=== PATIENT | female | born 1955 ===

== ENCOUNTER → 2019-07-24 06:00 | Outpatient (CLI) | payer OTHER ==
[~2019-07-24 06:00] MED LIST: LIPITOR20 MG PO; MICROZIDE12.5 MG PO; NORVASC5 MG PO; SYNTHROID125 MCG PO
== END | disposition home or self-care (01) ==
LOC: EKG 06:00 → ADM 12:45 → CIR.AMB 07-29 07:00 → ADM 07-29 12:45 → CIR.AMB 07-29 12:45 → EDSTATUS 07-29 12:45
DX: N95.0 Postmenopausal bleeding (principal)

== ENCOUNTER 2019-09-23 05:40 | Day surgery (SDC) | payer OTHER ==
[2019-09-23] MEDS ORDERED: IBU600 MG PO (09:22)
== END 2019-09-23 12:56 | disposition home or self-care (01) ==
LOC: CIR.AMB 05:40
DX: N95.0 Postmenopausal bleeding (principal)